=== PATIENT | male | born 1990 | race Two or more races ===

== ENCOUNTER 2019-05-13 12:56 | Emergency (ER) | payer OTHER ==
[~2019-05-13] VITALS: Ht 172.7 cm; Wt 79.4 kg
[2019-05-13 14:17] VITALS: BP 115/55
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
[2019-05-13] MEDS ORDERED: IBUPROFEN 400 MG TABLET ONE (14:19)
[2019-05-13] MEDS ORDERED: IBUPROFEN 400 MG TABLET PO ONE (14:30)
== END 2019-05-13 14:29 | disposition home or self-care (01) ==
LOC: ER 12:56
DX: S39.012A Strain of muscle, fascia and tendon of lower back, initial encounter (principal); V49.49XA Driver injured in collision with other motor vehicles in traffic accident, initial encounter; Y93.89 Activity, other specified; Y92.488 Other paved roadways as the place of occurrence of the external cause; Y99.8 Other external cause status